=== PATIENT | male | born 1950 | race Caucasian/White ===

== ENCOUNTER 2016-09-22 11:00 | Day surgery (SDC) | payer OTHER ==
[~2016-09-22] VITALS: Ht 182.9 cm; Wt 90.7 kg
[~2016-09-22 11:00] MED LIST: 0.9% Sodium Chloride 1,000 ML IV SCH; ALLO100T PO; AMLO10TA3 PO; ASP81TEC PO; BPR150TCR PO; BUPR150T12 PO; GLIM2TAB2 PO; METF-778 PO; METF1000 PO; NADO20TA PO; PARO40TA3 PO; ROB500 PO; SILD50TA PO; Sodium Chloride LOK Flush 10 mL Syringe IV PRN; ZES20 PO; ZYL100 PO; [UNRECOGNIZED DRUG - CODE] PO; fentaNYL-PF 50 mCg/mL 2 mL Inj IVPUSH PRN
[2016-09-22 11:31] VITALS: BP 124/83; PULSE 60; RESP 12; O2SAT 95
[2016-09-22 12:30] VITALS: BP 100/61; PULSE 53; RESP 16; O2SAT 92
[2016-09-22 12:39] VITALS: BP 91/56; PULSE 52; RESP 16; O2SAT 94
[2016-09-22 12:41] VITALS: BP 112/65; PULSE 56; RESP 17; O2SAT 95
--- NOTE | 2016-09-22 22:08 | ENDO ---
[address] [address] ENDOSCOPY PROCEDURE PATIENT: NICOLE MOELLER : 1950 MR#: [id number] ADMIT: 09/22/2016 JOB ID: [id number] DATE OF PROCEDURE: 09/22/2016 PRIMARY PROVIDER: Tavares Cruz MD PROCEDURE: Colonoscopy. INDICATIONS: A 66-year-old male with a personal history of adenomatous colon polyp returning for surveillance. EQUIPMENT: Decoholic[employer]80AL. SEDATION: 1. Versed 4 mg. 2. Fentanyl 100 mcg. COMPLICATIONS: None identified. BOWEL PREPARATION: Fair at best. The patient went to the [facility] as part of his bowel prep protocol. PROCEDURE INFORMATION: After the risks and benefits were explained, written and verbal informed consent was obtained. The patient was brought into the endoscopy suite and placed into the left lateral decubitus position. Sedation was achieved as above. A digital rectal examination accomplished. No significant pathology appreciated. Mild internal hemorrhoids. The scope was introduced into the rectum and advanced to the cecum as identified by the appendiceal orifice and ileocecal valve. The scope was slowly withdrawn to carefully examine the mucosa for any defects or lesions. Multiple direct views were made through the dentate line for exclusion of pathology. The colon was decompressed. The scope removed from the patient who tolerated the procedure well. FINDINGS: Mild diverticulosis in the left colon. Mild to moderate internal hemorrhoids were noted. No significant polyps, mass lesions, or inflammatory features identified within the limitations of bowel prep. There were several areas of dense as solid stool debris that simply could not be fully cleansed. ENDOSCOPIC DIAGNOSES: 1. Diverticulosis. 2. Hemorrhoids. 3. Suboptimal bowel prep conditions. RECOMMENDATIONS: Repeat colonoscopy in three years' time with an extra day of liquids prior to official bowel preparation protocol.
== END 2016-09-22 23:59 | disposition home or self-care (01) ==
LOC: END 11:00
PROVIDERS: ATTEND Internal Medicine Gastroenterology
DX: Z12.11 Encounter for screening for malignant neoplasm of colon (principal); K57.30 Diverticulosis of large intestine without perforation or abscess without bleeding; K64.8 Other hemorrhoids; Z86.010 Personal history of colon polyps; E11.9 Type 2 diabetes mellitus without complications; Z79.84 Long term (current) use of oral hypoglycemic drugs
CPT/HCPCS: 99153; G0105; G0500; J7030

== ENCOUNTER 2017-01-12 20:10 | Emergency (ER) | payer OTHER ==
[~2017-01-12] VITALS: Ht 177.8 cm; Wt 90.9 kg
[~2017-01-12 20:10] MED LIST changes: -0.9% Sodium Chloride 1,000 ML IV SCH; -ALLO100T PO; -BPR150TCR PO; -METF1000 PO; -ROB500 PO; -Sodium Chloride LOK Flush 10 mL Syringe IV PRN; -ZES20 PO; -[UNRECOGNIZED DRUG - CODE] PO; -fentaNYL-PF 50 mCg/mL 2 mL Inj IVPUSH PRN
--- NOTE | 2017-01-12 20:12 | ED.REPORT ---
HPI-Trauma Minor / Fall Date of Service Jan 12, 2017 ED Provider: Kermit Arroyo MD The pt is a 66 year old male who takes aspirin with a history of hypertension, diabetes and ankle surgery who is brought to the ED via EMS due to a fall. The pt was intoxicated at home today when he "lost his balance and fell," resulting in a laceration on his right eyebrow. He denies loss of consciousness and states that his tetanus is up to date. He states that he lost balance due to his chronic anterior cruciate ligament issues causing him to strike his knees and forehead. He denies any drinking problems and states that his only problem is that he "did not drink enough". Nursing Notes Stated Complaint: GLF, EYEBROW LAC Nursing Notes Reviewed: Yes Allergies: Coded Allergies: MICHELLE Inhibitors (Verified Allergy, Severe, ANGIOEDEMA, 09/22/16) Scheduled Allopurinol (Allopurinol) 100 Mg Tablet 100 MG PO DAILY Amlodipine (Amlodipine) 10 Mg Tablet 10 MG PO DAILY Aspirin-Expunged Drug, Do Not Renew! (Aspirin EC-Expunged Drug, Do Not Renew!) 81 Mg Tablet 81 MG PO AM Bupropion ER (Bupropion ER) 150 Mg Tablet.er 150 MG PO BID Glimepiride (Glimepiride) 2 Mg Tablet 2 MG PO DAILYAC Metformin HCl (Metformin HCl ER) 1,000 Mg [id number] 1,000 MG PO BID Nadolol (Nadolol) 20 Mg Tablet 20 MG PO DAILY Paroxetine (Paroxetine) 40 Mg Tablet 40 MG PO HS Scheduled PRN Sildenafil Citrate (Viagra) 50 Mg Tablet 50 MG PO UD PRN PRN erectile support General Time Seen by MD: 20:10 Chief Complaint Fall Hx Obtained From: Patient, EMS Arrived By: Ambulance Onset Occurred: 1 - 4 hours ago Symptom Duration: Since onset Recent Healthcare: Recent doctor visit Similar Sx Previous: No Past Medical History Past Medical History hypertension arthritis diabetes depression Past Surgical History bilateral inguinal hernia ankles Smoking History Unknown if Ever Smoker Ambulatory Status Independent Review of Systems Review of Systems Note: laceration Respiratory: Denies: Non-productive cough, Shortness of breath Musculoskeletal: Denies: Back pain, Neck pain Skin: Denies Rash Neurologic: Denies: Change LOC Complete sys rev & neg: except as marked. Physical Exam Initial Vital Signs Vital Signs (First) Date Time Temp Pulse Resp B/P Pulse Ox O2 Delivery O2 Flow Rate FiO2 01/12/17 20:14 36.0 82 20 123/79 94 Room Air Initial VS: Reviewed General/Constitutional: Awake, Alert appears intoxicated Neck: Supple, Full range of motion no midline cervical tenderness, bony deformity or step-offs Head / Eyes: Normocephalic, PERRL, EOMI abrasion and ecchymosis about the right brow and faith ENT: Airway patent, Mucous membranes moist superficial abrasion on the nose dried blood in bilateral nares no nasoseptal hematoma no signs of intraoral trauma Respiratory / Chest: Atraumatic, Breath sounds NL, Breath sounds = bilat, No respiratory distress Cardiovascular: Heart rate NL, Regular rhythm, Heart sounds NL, No gallop, No murmurs, No rubs Abdomen: Atraumatic, Soft, Non-tender, No distention Back: Atraumatic, Full range of motion no thoracic or lumbar bony deformity or step-offs Upper Extremity / MS: Atraumatic, Full range of motion, No deformity, Neurologic intact Lower Extremity / Pelvis / MS: Full range of motion abrasion of the right knee RLE otherwise atraumatic LLE atraumatic no palpable deformity pelvis stable to rock and compression superficial abrasion overlying the left knee Skin: Color NL, No rash, Warm, Dry Neurologic: Oriented X3, Speech NL, No motor deficits, No sensory deficits Psychiatric: Affect NL, Mood NL Interpretation & Diagnostics Lab Results Interpretation Result Diagram: 01/12/17203601/12/172036 Test 01/12/17 20:37 White Blood Count 7.7th/mm3 (3.8-10.1) Red Blood Count 4.29mil/mm3 (4.40-5.80) Hemoglobin 14.3g/dL (13.8-17.2) Hematocrit 40.1% (41.0-50.0) Mean Corpuscular Volume 93.5fL (81-100) Mean Corpuscular Hemoglobin 33.3pg (27.0-35.0) Mean Corpuscular Hemoglobin Concent 35.7% (32.0-37.0) Red Cell Distribution Width 12.7% (12.3-15.4) Platelet Count 199bil/L (150-400) Neutrophils (%) (Auto) 45.0% (40-74) Lymphocytes (%) (Auto) 33.2% (14-46) Monocytes (%) (Auto) 10.7% (4-12) Eosinophils (%) (Auto) 9.1% (0-5) Basophils (%) (Auto) 1.7% (0-3) Prothrombin Time 10.6sec (8.1-12.5) Prothromb Time International Ratio 0.99ratio Sodium Level 134mEq/L (134-144) Potassium Level 3.8mEq/L (3.5-5.2) Chloride Level 91mEq/L (97-108) Carbon Dioxide Level 21mmol/L (18-29) Blood Urea Nitrogen 16mg/dL (8-27) Creatinine 0.81mg/dL (0.76-1.27) Estimat Glomerular Filtration Rate 102mL/min (>59) Glucose Level 100mg/dL (60-99) Calcium Level 8.4mg/dL (8.5-10.1) Total Bilirubin 0.2mg/dL (0.0-1.2) Aspartate Amino Transf (AST/SGOT) 25U/L (0-50) Alanine Aminotransferase (ALT/SGPT) 22U/L (0-44) Alkaline Phosphatase 116U/L (25-160) Total Protein 7.1g/dL (6.4-8.4) Albumin 3.8g/dL (3.4-5.0) Alcohols 255mg/dL (0-10) CT Head Interpretation IMPRESSION: 1. No acute intracranial abnormality. 2. Right maxillary sinus mucosal disease. 3. Lytic change at the root of a right maxillary molar with associated bony erosion medially. Dictated by: Jeronimo Walters M.D. on 01/12/2017 at 20:54 Approved by: Jeronimo Walters M.D. on 01/12/2017 at 20:59 Interpretation / Wet Read by: Interpret - Radiologist CT C-Spine Interpretation IMPRESSION: 1. No fracture or subluxation. 2. Minimal multilevel spondylolisthesis likely degenerative in etiology. 3. Extensive multilevel degenerative changes throughout the cervical spine as described. Dictated by: Jeronimo Walters M.D. on 01/12/2017 at 20:59 Approved by: Jeronimo Walters M.D. on 01/12/2017 at 21:02 Interpretation / Wet Read by: Interpret - Radiologist Re-Eval/Medical Decision Med Decision/Clinical Course The pt is a 66 year old male who takes aspirin with a history of hypertension, diabetes and ankle surgery who is brought to the ED via EMS due to a fall. The pt was intoxicated at home today when he "lost his balance and fell," resulting in a laceration on his right eyebrow. He denies loss of consciousness and states that his tetanus is up to date. He states that he lost balance due to his chronic anterior cruciate ligament issues causing him to strike his knees and forehead. He denies any drinking problems and states that his only problem is that he "did not drink enough". Upon arrival in the emergency department the patient was afebrile with stable vital signs and examination as above. He was linear/organized and speaking in full sentences without any lateralizing or focal neurologic deficits though he did appear intoxicated. He was placed in a cervical collar. IV fluids given in ED. Laboratory studies notable as below: CBC unremarkable CMP unremarkable Coagulation studies normal. Initial alcohol: 0.255. Repeat breathalyzer: 0.156. C-spine CT: IMPRESSION: 1. No fracture or subluxation. 2. Minimal multilevel spondylolisthesis likely degenerative in etiology. 3. Extensive multilevel degenerative changes throughout the cervical spine as described. Head CT: IMPRESSION: 1. No acute intracranial abnormality. 2. Right maxillary sinus mucosal disease. 3. Lytic change at the root of a right maxillary molar with associated bony erosion medially. Patient was observed in the emergency department until clinical sobriety. His lacerations/abrasions were copiously irrigated and cleaned. There were no lacerations requiring sutures. Patient was able to answer questions appropriately and walking a straight line without any assistance. He was updated as to the above imaging findings. Given clinical Thursday and was able to clear his cervical spine and removed the collar. Was seen and evaluated by our social media designer in order to provide resources for his alcohol abuse however he declined stating that he does not have a drinking problem. He will be given a cab back home and he is advised to follow up closely with his primary care physician and reduce his alcohol consumption. Prior to discharge follow-up and return precautions were reviewed in detail with the patient who verbalized understanding and agreement with the plan. The patient was discharged in stable condition. Re-Evaluation/Progress : Time of Eval: 22:32 Patient Status: Condition improved Re-Evaluation/Progress Note: Pt rechecked, who is comfortable. The diagnosis and plan for discharge are discussed. The pt understands and agrees with the plan. All questions are addressed at this time. Consultation : Call Returned at: 22:40 Note: Spoke with social media designer regarding pt's case. workers' compensation hearings officer has offered resources, which the pt has denies. Plan for discharge is discussed. Counseled Regarding: Diagnosis, Lab results, Need for follow-up, When/why to return to ED Discharge & Departure Impression: Primary Impression: Head trauma Encounter type: initial encounter Qualified Code: S09.90XA - Unspecified injury of head, initial encounter Additional Impressions: Eyebrow laceration Encounter type: initial encounter Laterality: right Qualified Code: S01.111A - Laceration without foreign body of right eyelid and periocular area, initial encounter Abrasions of multiple sites Alcohol abuse Fall from ground level Disposition: Home Discharge Condition All VS Reviewed: Yes Condition: Stable Patient Instructions: Abrasion (ED), Alcohol Intoxication (ED), Laceration (ED) Additional Instructions: Thanks for coming to [facility] Emergency Department today. You were seen and evaluated for your alcohol intoxication, falling and injuring yourself. Keep the wounds covered in antibiotic ointment and sterile dressing. Thanks for coming to [facility] Emergency Department today. You were seen and evaluated for your alcoholism. Please follow the below recommendations: -We recommend that you stop drinking alcohol. - Please follow up on the resources provided to you by our social work team. - Alcohol withdrawal can be life threatening. You cannot quit alcohol "cold turkey." You will need to gradually taper off of the amount of alcohol you drink or you could have severe withdrawal symptoms. - Return to the ER if you are having any thoughts of wanting to hurt yourself or others, if you are hearing or seeing things that aren't there, are having severe tremors or any other symptoms of concern. - Continue to call [facility] at in order to start treatment when they have a bed available. - You should return to the ED immediately if you develop abdominal pain, fevers , uncontrollable vomiting, shortness of breath, chest pain, lightheadedness, weakness or any other concerning signs or symptoms. Thank you for letting us partake in your care today. You have some dental disease of the right molar. Follow up with a dentist as soon as possible. Referrals: Tavares Cruz MD (PCP) Scribe Attestation Portions of this note were transcribed by Sheldon Jaime. I, Dr. Arroyo personally performed the history, physical exam and medical decision-making; I reviewed and confirmed the accuracy of the information in the transcribed note. copies to: Tavares Cruz MD, Beck O MD Jan 12, 2017 20:12 SHELDON JAIME Jan 12, 2017 20:19
[2017-01-12 20:14] VITALS: BP 123/79; PULSE 82; RESP 20; O2SAT 94
[2017-01-12] MEDS ORDERED: 0.9% Sodium Chloride 1,000 ML IV ONE (20:18)
[2017-01-12] MEDS ORDERED: TdaP Vaccine 0.5 mL Inj IM ONE (20:20)
[2017-01-12 20:46] LABS: BASOPHILS % (AUTO) 1.7 % (0-3); EOSINOPHILS % (AUTO) 9.1 % (0-5); MONOCYTES % (AUTO) 10.7 % (4-12); Mean Corpuscular Hemoglobin 33.3 pg (27.0-35.0); Mean Corpuscular Volume 93.5 fL (81-100); Platelet Count 199 bil/L (150-400)
[2017-01-12 20:57] LABS: INR 0.99 ratio
--- NOTE | 2017-01-12 21:00 | DRSVH ---
PROCEDURE: CT BRAIN WITHOUT CONTRAST ([id number]) INDICATIONS: trauma TECHNIQUE: Noncontrast 4.5 mm thick angled axial sections acquired from the foramen magnum to the vertex, with c oronal reformats. COMPARISON: None. FINDINGS: Image quality: Excellent. CSF spaces: Basal cisterns are patent. No extra-axial fluid collections. There is mild cerebral vo lume loss with prominence of the ventricles and sulci. Brain: No intracranial hemorrhage, mass, or mass effect. Gomes-white matter interface is preserved. Skull and face: Calvarium and visualized facial bones appear intact. There is a lucency involving t he root of a right maxillary molar with associated bony erosion medially. Sinuses: Visualized sinuses demonstrate partial mucosal opacification of the right maxillary sinus in feriorly and minimal mucosal thickening on the left side. The mastoid air cells are clear. IMPRESSION: 1. No acute intracranial abnormality. 2. Right maxillary sinus mucosal disease. 3. Lytic change at the root of a right maxillary molar with associated bony erosion medially. Dictated by: Jeronimo Walters M.D. on 01/12/2017 at 20:54 Approved by: Jeronimo Walters M.D. on 01/12/2017 at 20:59
--- NOTE | 2017-01-12 21:04 | DRSVH ---
PROCEDURE: CT CERVICAL SPINE WITHOUT CONTRAST ([id number]) INDICATIONS: trauma TECHNIQUE: Noncontrast 3 mm thick sections acquired from the skull base to the T4 level. Sagittal and coronal r eformats were then constructed. For radiation dose reduction, the following was used: automated exp osure control, adjustment of mA and/or kV according to patient size. COMPARISON: None. FINDINGS: Image quality: There is mild motion artifact slightly limiting evaluation. Bones: No definite fractures or dislocations. There is minimal anterolisthesis at C3-C4 and C7-T1. Minimal retrolisthesis is demonstrated at C4-C5 C5-C6. There is multilevel disc space narrowing thr oughout the cervical spine including moderate to severe narrowing at C4-C5, C5-C6, and C6-C7 with end plate sclerosis and osteophytosis. There is also multilevel uncovertebral joint and facet arthropath y throughout the cervical spine. Visualized superior ribs are intact. Soft tissues: Prevertebral soft tissues are normal in thickness. No paravertebral hematomas. No ap ical pneumothoraces. IMPRESSION: 1. No fracture or subluxation. 2. Minimal multilevel spondylolisthesis likely degenerative in etiology. 3. Extensive multilevel degenerative changes throughout the cervical spine as described. Dictated by: Jeronimo Walters M.D. on 01/12/2017 at 20:59 Approved by: Jeronimo Walters M.D. on 01/12/2017 at 21:02
[2017-01-12 22:58] VITALS: BP 151/54; PULSE 74; RESP 20; O2SAT 95
== END 2017-01-12 22:59 | disposition home or self-care (01) ==
LOC: SED 20:10
DX: S09.8XXA Other specified injuries of head, initial encounter (principal); S01.111A Laceration without foreign body of right eyelid and periocular area, initial encounter; S00.31XA Abrasion of nose, initial encounter; S80.212A Abrasion, left knee, initial encounter; F10.120 Alcohol abuse with intoxication, uncomplicated; Y90.8 Blood alcohol level of 240 mg/100 ml or more; W18.39XA Other fall on same level, initial encounter; Y93.9 Activity, unspecified; Y92.009 Unspecified place in unspecified non-institutional (private) residence as the place of occurrence of the external cause; Y99.8 Other external cause status; I10 Essential (primary) hypertension; Z79.82 Long term (current) use of aspirin; Z79.84 Long term (current) use of oral hypoglycemic drugs; Z88.8 Allergy status to other drugs, medicaments and biological substances; Z23 Encounter for immunization
CPT/HCPCS: 36415; 70450; 72125; 80053; 82075; 85025; 85610; 90471; 90715; 96360; 99284; G0480; J7030